=== PATIENT | female | born 1955 | race Caucasian/White ===

== ENCOUNTER → 2020-10-24 09:09 | Outpatient (CLI) | payer MEDICARE, OTHER, SELFPAY ==
[2020-10-24] MEDS: COVID-19 VACC, Ad26(JANSSEN)/PF 0.5 ML IM (09:34)
== END ==
PROVIDERS: PCP Family Medicine; Visit Provider Internal Medicine
DX: Z23 Encounter for immunization (principal)
CPT/HCPCS: 0031A; 91303